=== PATIENT | male | born 1955 | race Caucasian/White ===

== ENCOUNTER 2017-01-31 08:07 | Emergency (ER) | payer OTHER ==
[2017-01-31 08:17] VITALS: TEMP 98
--- NOTE | 2017-01-31 08:41 | ED.PDOC ---
History of Present Illness - General Chief Complaint: GI Problem Stated Complaint: Possible bowel obstruction Time Seen by Provider: 01/31/17 08:34 Information Source: patient, RN notes reviewed, Vital Signs reviewed, family - Exam Limitations: no limitations - History of Present Illness Initial Comments: Patient comes in the w/o lower abd pain and constipation. Last normal bowel movement was 4-5 days ago. He was recently on Hydrocodone for dental pain. He has tried numerous oral and rectal OTC treatments with minimal improvement, just small amounts of brown liquid. He is passing small amounts of gas too. Feels bloated and like all the prune juice, mineral oil, etc is just still sitting in his stomach. He has not been eating much just because he does not want to put more in. He has been drinking a lot of water. + chills. No fever, no urinary symptoms. Abdominal Pain Onset Location: suprapubic Pain Radiation: no radiation Quality: moderate, cramping Timing/Duration: days - 5 Improving Factors: nothing Worsening Factors: eating Associated Symptoms: fever/chills Review of Systems - Review of Systems Constitutional: States: chills. Denies: diaphoresis, fever, malaise Respiratory: States: no symptoms reported. Denies: short of breath Cardiology: States: no symptoms reported. Denies: chest pain, palpitations, syncope Gastrointestinal/Abdominal: States: see HPI, abdominal pain, constipation. Denies: nausea, vomiting Genitourinary: States: no symptoms reported Musculoskeletal: States: no symptoms reported Skin: States: no symptoms reported Neurological: States: no symptoms reported All other Systems: No Change from Baseline Past Medical History (General) - Patient Medical History Hx Stroke: Yes - 2009 Hx Cardiac Disorders: Yes - pacemaker; CA Hx Congestive Heart Failure: Yes Hx Hypertension: Yes Hx Diabetes: No Hx Gastroesophageal Reflux: Yes - Vaccination History Hx Influenza Vaccination: Yes - 2016 Hx Pneumococcal Vaccination: Yes - Social History Hx Tobacco Use: Yes Family Medical History - Family History Father Living Status: Cause of : Cancer Physical Exam - Physical Exam General Appearance: Alert, Comfortable, No apparent distress, Well Developed, Well Groomed, Well Hydrated, Well Nourished Respiratory: chest non-tender, lungs clear, normal breath sounds, no respiratory distress, no accessory muscle use Cardiovascular/Chest: regular rate, rhythm, no gallop, no JVD, no murmur Gastrointestinal/Abdominal: soft, no organomegaly, no pulsatile mass, abnormal bowel sounds - Hypoactive, tenderness - mild LLQ & suprapubic w/o guarding or rebound Extremity: normal range of motion Neurologic: alert, normal mood/affect, oriented x 3 Skin Exam: normal color, warm/dry Comments: Vital Signs 01/31/17 08:16 Temperature 98.0 F Pulse Rate [ 98 H Left Radial] Respiratory 20 Rate Blood Pressure 116/69 [Left Arm] O2 Sat by Pulse 95 Oximetry Progress - Progress Progress: 01/31/17 09:13 Will try soap suds enema and see how patient responds 01/31/17 11:19 Patient had a good response to the enema. He is ready to go home. - EKG/XRAY/CT XRAY: abdomen - No acute process per Radiologist - No constipation but does appear to have a ball of stool in rectum Departure - Departure Clinical Impression: Constipation Qualifiers: Constipation type: other constipation type Qualified Code(s): K59.09 - Other constipation Time of Disposition: 11:19 Disposition: Discharge to Home or Self Care Condition: Good Departure Forms: ED Discharge - Pt. Copy, Patient Portal Self Enrollment Instructions: DI for Constipation Diet: resume usual diet Activity: increase activity as tolerated Home Medications: Ambulatory Orders Omeprazole 20 mg PO DAILY 01/31/17
--- NOTE | 2017-01-31 09:05 | RAD ---
PROCEDURE: Abdomen Flat Upright Clinical History: Lower abd pain/constipation Indication: Same as above Comparison: None Technique: 3.0 views of the abdomen and pelvis were done. Findings: There is no gross evidence of free air in the abdomen or the pelvis . The small and large bowel gas pattern does not show any evidence of obstruction, ileus or bowel wall thickening. There is no visualization of radiopaque calculi in the outline of the urinary tract. The visualized lung bases show presence of a ICD wires projected over the cardiac contour There is no constipation. Impression: Unremarkable abdomen and pelvis Location of Interpretation: [id number] Electronically signed by: Jose Brennan MD 01/31/2017 9:04 AM CDT Workstation: [employer]
[2017-01-31 11:37] VITALS: BP 135/86; O2SAT 100
== END 2017-01-31 11:22 | disposition home or self-care (01) ==
LOC: ER 08:07
DX: K59.00 Constipation, unspecified (principal); I25.2 Old myocardial infarction; I50.9 Heart failure, unspecified; I11.0 Hypertensive heart disease with heart failure; K21.9 Gastro-esophageal reflux disease without esophagitis; Z95.0 Presence of cardiac pacemaker; Z87.891 Personal history of nicotine dependence

== ENCOUNTER → 2018-09-16 | Outpatient (CLI) | payer OTHER ==
--- NOTE | 2018-09-16 10:54 | RAD ---
EXAM DESCRIPTION: Shoulder,Right 2 or More Views CLINICAL HISTORY: 62 years Male, PAIN IN RIGHT SHOULDER COMPARISON: None available. FINDINGS: The visualized bones are well-mineralized.No acute fracture or dislocation. The soft tissues appear grossly unremarkable. Mild degenerative changes are identified in the acromioclavicular joint. 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 Electronically signed by: Stacie Alarcon MD 09/16/2018 10:[address] [facility]
--- NOTE | 2018-09-16 14:28 | RAD ---
Left elbow 3 views INDICATION: Elbow pain IMPRESSION: Small calcification proximal to the medial epicondyle. Enthesophyte/ossification medial epicondyle. Mild osteophyte formation humeral trochlea and sublime tubercle. These are chronic degenerative type changes. No fracture or dislocation. Electronically signed by: Domenic Harris MD 09/16/2018 2:26 PM [facility]
== END ==
LOC: RAD 08:55
PROVIDERS: ATTEND Orthopaedic Surgery
DX: M19.011 Primary osteoarthritis, right shoulder (principal); M25.712 Osteophyte, left shoulder; M25.522 Pain in left elbow; M25.511 Pain in right shoulder

== ENCOUNTER 2019-01-14 07:00 | Emergency (ER) | payer MEDICARE, OTHER ==
--- NOTE | 2019-01-14 08:40 | CT ---
EXAM: CT Abdomen and Pelvis With Intravenous Contrast CLINICAL HISTORY: 63 years old and is Male; rlq pain TECHNIQUE: Axial computed tomography images of the abdomen and pelvis with intravenous contrast. Sagittal and coronal reformatted images were created and reviewed. This CT exam was performed using one or more of the following dose reduction techniques: automated exposure control, adjustment of the mA and/or kV according to patient size, and/or use of iterative reconstruction technique. COMPARISON: No relevant prior studies available. FINDINGS: Limitations: None. Lung bases: Unremarkable. No mass. No consolidation. ABDOMEN: Liver: Fatty liver. Gallbladder and bile ducts: Unremarkable. No calcified stones. No ductal dilation. Pancreas: Unremarkable. No mass. No ductal dilation. Spleen: Unremarkable. No splenomegaly. Adrenals: Unremarkable. No mass. Kidneys and ureters: There is right renal cortical scarring. No hydronephrosis or mass. No stone. Stomach and bowel: Colonic diverticulosis noted. No obstruction. No mucosal thickening. PELVIS: Appendix: The appendix is dilated to 16 mm, thickened and inflamed. It is located in the typical position. Bladder: Unremarkable. No mass. Reproductive: Unremarkable as visualized. ABDOMEN and PELVIS: Intraperitoneal space: Unremarkable. No free air. No significant fluid collection. Bones/joints: No acute fracture. No dislocation. Soft tissues: Unremarkable. Vasculature: There is atherosclerosis of the aorta and branches. No aneurysm or dissection. Lymph nodes: Unremarkable. No enlarged lymph nodes. Tubes, lines and devices: Artifact from the defibrillator leads present in the cardiac ventricles. IMPRESSION: Acute appendicitis without complication. Electronically signed by: Gina Mojica MD 01/14/2019 8:38 AM CDT
[2019-01-14] MEDS ORDERED: PIPERACILLIN/TAZOBACTAM 3.375 GM in SODIUM CHLORIDE 0.9% 100ML 100 ML IVPB ONE (08:54)
[2019-01-14] MEDS ORDERED: SODIUM CHLORIDE 0.9% 100ML 100 ML IVPB ONE (08:56)
[2019-01-14] MEDS ORDERED: PIPERACILLIN/TAZOBACTAM 3.375 GM VIAL IVPB ONE (08:56)
--- NOTE | 2019-01-14 09:22 | ED.PDOC ---
History of Present Illness - General Chief Complaint: Abdominal Pain Stated Complaint: RLQ abdomen pain Time Seen by Provider: 01/14/19 07:22 Source: patient Exam Limitations: no limitations - History of Present Illness Initial Comments: the patient is a 63-year-old male ing to the emergency room secondary to right lower quadrant pain. Pain started yesterday. He has had a loss of appetite. Questionable chills overnight but no definite fever. No vomiting. He did take some laxative yesterday so he's had a couple of episodes of diarrhea. No blood in the stool. He does have localized right lower quadrant pain at its worst and some generalized associated peritonitis. Timing/Duration: 24 hours Severity: moderate Improving Factors: nothing Worsening Factors: eating, movement Associated Symptoms: loss of appetite, malaise Allergies/Adverse Reactions: Allergies Haloperidol [From Haldol] Adverse Reaction (Verified 01/14/19 07:31) Home Medications: Ambulatory Orders Carvedilol Phosphate 40 mg PO DAILY 01/14/19 Rosuvastatin Calcium 5 mg PO DAILY 01/14/19 Telmisartan 40 mg PO DAILY 01/14/19 Review of Systems - Review of Systems Constitutional: States: malaise EENTM: States: no symptoms reported Respiratory: States: no symptoms reported Cardiology: States: no symptoms reported Gastrointestinal/Abdominal: States: abdominal pain, diarrhea Genitourinary: States: no symptoms reported Musculoskeletal: States: no symptoms reported Skin: States: no symptoms reported Neurological: States: no symptoms reported Endocrine: States: no symptoms reported All other Systems: No Change from Baseline Past Medical History (General) - Patient Medical History Hx Stroke: Yes Hx of COPD: No Hx Cardiac Disorders: Yes Hx Congestive Heart Failure: No Hx Pacemaker: Yes Hx Hypertension: Yes Hx Diabetes: No Hx Gastroesophageal Reflux: Yes Surgical History: other - Vaccination History Hx Tetanus, Diphtheria Vaccination: No Hx Influenza Vaccination: Yes Hx Pneumococcal Vaccination: Yes - Social History Hx Tobacco Use: Yes Hx Alcohol Use: Yes - Occasional Hx Substance Use: No Hx Substance Use Treatment: No Hx Depression: No - Female History Patient is a Female of Child Bearing Age (10 -59 yrs old): No Patient : No Family Medical History - Family History Father Living Status: Cause of : Cancer Physical Exam - Physical Exam General Appearance: Alert, No apparent distress Eye Exam: bilateral normal Ears, Nose, Throat: hearing grossly normal, normal ENT inspection, normal pharynx Neck: full range of motion, supple Respiratory: lungs clear, normal breath sounds, no respiratory distress, no accessory muscle use Cardiovascular/Chest: normal peripheral pulses, regular rate, rhythm, no edema Peripheral Pulses: radial,right: 2+, radial,left: 2+, dorsalis pedis,right: 2+, dorsalis pedis,left: 2+ Gastrointestinal/Abdominal: other - right lower quadrant pain with some mild to moderate associated peritonitis. No definite palpable mass. He does have some guarding. 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 He will be made nothing by mouth. He has not had any solid food since yesterday. He is receiving a dose of Zosyn. A blood culture has been performed. His only blood thinner as aspirin. He is being transferred for higher level of care secondary to our facility not having surgery over the weekend. Acceptance is appreciated. - Results/Orders Results/Orders: 01/14/19 07:50 BLOOD CULTURE Stat 01/14/19 08:11 Hold Metformin x 48Hrs [id number] 01/14/19 08:54 Piperacillin/Tazobactam [Zosyn] 3.375 gm Sodium Chloride 0.9% 100Ml [NS (NACL 0.9%) 100ml] 100 ml IVPB ONCE Laboratory Results - last 24 hr 01/14/19 01/14/19 01/14/19 07:45 07:50 07:50 WBC 15.6 H RBC 5.43 Hgb 16.3 Hct 49.0 MCV 90.3 MCH 30.1 MCHC 33.3 RDW 13.5 Plt Count 221 MPV 8.9 Absolute Neuts (auto) 11.30 H Absolute Lymphs (auto) 2.40 Absolute Monos (auto) 1.60 H Absolute Eos (auto) 0.10 Absolute Basos (auto) 0.10 Neutrophils % 72.8 Lymphocytes % 15.7 L Monocytes % 10.0 H Eosinophils % 0.8 L Basophils % 0.7 D-Dimer, Quantitative Sodium 138 Potassium 3.8 Chloride 99 L Carbon Dioxide 28 Anion Gap 14.8 BUN 9 Creatinine 0.84 BUN/Creatinine Ratio 10.7 Random Glucose 128 H Serum Osmolality 276.0 Lactic Acid 0.9 Calcium 10.0 Total Bilirubin 0.9 AST 19 ALT 30 Alkaline Phosphatase 68 Creatine Kinase 60 CK-MB (CK-2) 1.0 CK-MB (CK-2) % Not Reportable Troponin I < 0.02 Serum Total Protein 7.5 Albumin 4.2 Globulin 3.3 Albumin/Globulin Ratio 1.3 Amylase 28 Lipase 29 Urine Color Urine Appearance Urine pH Ur Specific [place] Urine Protein Urine Glucose (UA) Urine Ketones Urine Blood Urine Nitrite Urine Bilirubin Urine Urobilinogen Ur Leukocyte Esterase Urine RBC Urine WBC Ur Epithelial Cells Amorphous Sediment Urine Bacteria 01/14/19 01/14/19 07:50 08:35 WBC RBC Hgb Hct MCV MCH MCHC RDW Plt Count MPV Absolute Neuts (auto) Absolute Lymphs (auto) Absolute Monos (auto) Absolute Eos (auto) Absolute Basos (auto) Neutrophils % Lymphocytes % Monocytes % Eosinophils % Basophils % D-Dimer, Quantitative 0.47 Sodium Potassium Chloride Carbon Dioxide Anion Gap BUN Creatinine BUN/Creatinine Ratio Random Glucose Serum Osmolality Lactic Acid Calcium Total Bilirubin AST ALT Alkaline Phosphatase Creatine Kinase CK-MB (CK-2) CK-MB (CK-2) % Troponin I Serum Total Protein Albumin Globulin Albumin/Globulin Ratio Amylase Lipase Urine Color Yellow Urine Appearance Clear Urine pH 8.5 H Ur Specific [place] 1.010 Urine Protein Trace Urine Glucose (UA) Negative Urine Ketones Negative Urine Blood Trace-intact H Urine Nitrite Negative Urine Bilirubin Negative Urine Urobilinogen 0.2 Ur Leukocyte Esterase Negative Urine RBC 1-3 Urine WBC 0-1 Ur Epithelial Cells 0 Amorphous Sediment 1+ Urine Bacteria Rare CT scan abdomen and pelvis shows appendicitis without evidence of perforation or abscess formation. Departure - Departure Clinical Impression: Appendicitis Qualifiers: Appendicitis type: acute appendicitis Acute appendicitis type: with localized peritonitis Appendicitis gangrene presence: without gangrene Appendicitis perforation presence: without perforation Appendicitis abscess presence: without abscess Qualified Code(s): K35.30 - Acute appendicitis with localized peritonitis, without perforation or gangrene Disposition: Transfer to Hospital Departure Forms: ED Discharge - Pt. Copy, Patient Portal Self Enrollment Home Medications: Ambulatory Orders Carvedilol Phosphate 40 mg PO DAILY 01/14/19 Rosuvastatin Calcium 5 mg PO DAILY 01/14/19 Telmisartan 40 mg PO DAILY 01/14/19 Transfer to Outside Facility - Transfer Information Accepting Provider:: dr partida/linda Accepting Facility: [facility] Reason for Transfer: required specialist not available
[2019-01-14 11:25] VITALS: BP 148/63; TEMP 97; O2SAT 96
== END 2019-01-14 10:50 | disposition short-term general hospital (02) ==
LOC: ER 07:00
DX: K35.30 Acute appendicitis with localized peritonitis, without perforation or gangrene (principal); I51.9 Heart disease, unspecified; I10 Essential (primary) hypertension; K21.9 Gastro-esophageal reflux disease without esophagitis; Z86.73 Personal history of transient ischemic attack (TIA), and cerebral infarction without residual deficits; Z95.0 Presence of cardiac pacemaker; Z87.891 Personal history of nicotine dependence; Z88.8 Allergy status to other drugs, medicaments and biological substances
CPT/HCPCS: 36415; 74177; 80053; 81001; 82150; 82550; 82553; 83605; 83690; 84484; 85025; 85379; 87040; J2543; J7050

== ENCOUNTER 2019-03-27 07:00 | Day surgery (SDC) | payer MEDICARE, OTHER ==
[~2019-03-27 07:00] MED LIST: DEXAMETHASONE INJ 10 MG/ML VIAL IV ONE; HYDROmorphone HCL INJ 2 MG/ML VIAL IV ONE; KETOROLAC TROMETHAMINE INJ 30 MG/ML VIAL IV ONE; LIDOCAINE 1% 10 ML VIAL INJ ONE; MIDAZOLAM INJ 2 MG/2 ML VIAL IV ONE; PROPOFOL 200 MG/20 ML VIAL IV ONE; SODIUM CHLORIDE 0.9% 50 ML VIAL INJ ONE; raNITIdine HCL INJ 25 MG/ML VIAL IV ONE
[2019-03-27] MEDS ORDERED: LACTATED RINGERS 1,000 ML ONE (07:20)
[2019-03-27] MEDS ORDERED: HYDROmorphone HCL INJ 2 MG/ML VIAL IV ONE (11:06)
[2019-03-27] MEDS ORDERED: MIDAZOLAM INJ 2 MG/2 ML VIAL IV ONE (11:06)
[2019-03-27] MEDS ORDERED: BUPIVACAINE 0.5% W/EPI 30 ML VIAL INJ ONE ×2 (11:07→11:34)
[2019-03-27] MEDS ORDERED: HYDROcodone 5MG/APAP 325MG 1 EA TAB ONE (12:44)
[2019-03-27] MEDS ORDERED: HYDROCOD/APAP 5/325 (ER DISP) #3 TAB PO ONE (12:47)
--- NOTE | 2019-03-27 13:08 | OP ---
DATE OF PROCEDURE: 03/27/19 PREOPERATIVE DIAGNOSIS: 1. Ventral incisional hernia. POSTOPERATIVE DIAGNOSIS: 1. Incarcerated ventral incisional hernia. PROCEDURE: 1. Repair of incarcerated incisional hernia with mesh. SURGEON: Ar Duvall MD. ANESTHESIA: General and local. FINDINGS: There was approximately 4 cm to 5 cm defect with some incarcerated omentum. The edges of the fascia were very healthy and firm. A 2.5 inch Ventralex was used. COMPLICATIONS: None. ESTIMATED BLOOD LOSS: Minimal. CONDITION: Stable. PLAN: Discharge. INDICATION: As stated. PROCEDURE: General anesthesia was induced. He was prepped and draped in sterile fashion. The previous scar was excised as it wide and unsightly and slightly keloid. Once that was removed, the abdominal cavity was entered without difficulty. There was incarcerated omentum around the edges of the hernia. These were freed up with cautery. We grasped the apex of the hernia, elevated it and made sure the intraabdominal peritoneum was free of adhesions and it was. We then assessed the hernia. It was just around 4 cm or so and reasonable for a 2.5 inch Ventralex, so the 0-PDS popoffs were used to close the apices and then placed the mesh. It was lying nice and flat on the abdominal wall with gentle pulling on the tail. We then placed the final sutures incorporating the tail with the fascia closure. We then trimmed the tail, burying it as we closed the final sutures for good closure. The wound was then closed in two layers and Steri-Strips were applied. He tolerated the procedure. He was awakened and taken to Recovery to be discharged. #[id number] cc: Ar Pedroza MD [facility]
[2019-03-27 13:55] VITALS: BP 159/79; TEMP 97.2; O2SAT 95
== END 2019-03-27 14:05 | disposition home or self-care (01) ==
LOC: AMB 07:00
PROVIDERS: ATTEND Surgery
DX: K43.0 Incisional hernia with obstruction, without gangrene (principal); I11.0 Hypertensive heart disease with heart failure; I50.22 Chronic systolic (congestive) heart failure; E78.00 Pure hypercholesterolemia, unspecified; F17.200 Nicotine dependence, unspecified, uncomplicated; Z90.49 Acquired absence of other specified parts of digestive tract; Z96.652 Presence of left artificial knee joint; Z88.8 Allergy status to other drugs, medicaments and biological substances; Z95.0 Presence of cardiac pacemaker; Z79.82 Long term (current) use of aspirin; Z79.899 Other long term (current) drug therapy
CPT/HCPCS: 00832; 36415; 49561; 49568; 80053; 85025; 93005; A4216; J1100; J1170; J1885; J2250; J2780; J3490; J7120

== ENCOUNTER 2019-06-09 18:06 | Emergency (ER) | payer MEDICARE, OTHER ==
[2019-06-09] MEDS ORDERED: TETANUS,DIPHTHERIA,PERTUSSIS 1 EA SYG IM ONE (18:27)
[2019-06-09] MEDS ORDERED: LIDOCAINE 1% 10 ML VIAL INJ ONE (18:40)
[2019-06-09] MEDS ORDERED: CHLORHEXIDINE GLUCONATE 4 % 15 ML UD TOP ONE (18:40)
[2019-06-09] MEDS ORDERED: NEOMYCIN-BACITRACIN-POLYMYXIN 0.9 GM UD TOP ONE (18:40)
--- NOTE | 2019-06-09 18:50 | ED.PDOC ---
History of Present Illness - General Chief Complaint: Laceration Stated Complaint: laceration to left hand Time Seen by Provider: 06/09/19 18:37 - History of Present Illness Initial Comments: patient presents today following a laceration from an accident with a chainsaw. He lacerated the fat pad of his left hand palmar aspect. He is not up-to-date on his tetanus shot. He admits that he is on a blood thinner currently. he rep orts that he cleaned it heavily with hydrogen peroxide prior to arrival. Allergies/Adverse Reactions: Allergies Haloperidol [From Haldol] Adverse Reaction (Verified 01/14/19 07:31) Home Medications: Ambulatory Orders Rosuvastatin Calcium 5 mg PO DAILY 01/14/19 Acetaminophen Arthritis [Tylenol Arthritis] 650 mg PO PRN PRN 03/22/19 Sacubitril-Valsartan [Entresto 24-26 mg] 1 tab PO BEDTIME 03/22/19 Amoxicillin & Pot Clavulanate [Augmentin Tab] 875 mg PO BID #14 tab 06/09/19 Carvedilol [Coreg] 3.125 mg PO BID 06/09/19 Clopidogrel Bisulfate [Plavix] 75 mg PO QD 06/09/19 Review of Systems - Review of Systems Constitutional: States: no symptoms reported Respiratory: States: no symptoms reported Cardiology: States: no symptoms reported Gastrointestinal/Abdominal: States: no symptoms reported Musculoskeletal: States: no symptoms reported Skin: States: see HPI, other - laceration to the left hand thenar eminence All other Systems: Reviewed and Negative Past Medical History (General) - Patient Medical History Hx Stroke: Yes Hx of COPD: No Hx Cardiac Disorders: Yes - Pacer/Defib,IN Hx Congestive Heart Failure: Yes Hx Pacemaker: Yes Hx Hypertension: Yes Hx Diabetes: No Hx Gastroesophageal Reflux: Yes Hx MRSA: No Surgical History: appendectomy, colectomy, pacemaker - Vaccination History Hx Tetanus, Diphtheria Vaccination: No Hx Influenza Vaccination: Yes - 06/08/19 Hx Pneumococcal Vaccination: Yes - 06/08/19 - Social History Hx Tobacco Use: Yes Hx Alcohol Use: Yes - Occasional Hx Substance Use: No Hx Substance Use Treatment: No Hx Depression: No - Female History Patient : No Family Medical History - Family History Father Living Status: Cause of : Cancer Physical Exam - Physical Exam General Appearance: Alert, Comfortable, No apparent distress Eyes, Ears, Nose, Throat Exam: PERRL/EOMI Cardiovascular/Chest: tachycardia Respiratory: no respiratory distress, no accessory muscle use Extremity: normal range of motion Neurologic: director of purchasing II-XII nml as tested, no motor/sensory deficits, alert, normal mood/affect, oriented x 3 Skin Exam: other - noted laceration 5 cm to the left thenar eminence linear, jagged due to mechanism of injury Skin Problem Location: upper extremities Progress - Progress Progress: 06/09/19 19:48 patient tolerated the procedure well, no pain evident currently Procedures - Laceration/Wound Repair Left Volar Hand Wound Length (cm): 5 Wound's Depth, Shape: linear, irregular Wound Explored: no foreign body removed Betadine Prep?: Yes Anesthesia: 1% Lidocaine Volume Anesthetic (cc's): 10 Wound Debrided: minimal Wound Repaired With: sutures Suture Size/Type: 4:0, prolene Number of Sutures: 12 Layer Closure?: No Sterile Dressing Applied?: Yes Splint Applied?: No Sling Applied?: No Departure - Departure Clinical Impression: Laceration Time of Disposition: 19:06 Disposition: Discharge to Home or Self Care Condition: Good Departure Forms: ED Discharge - Pt. Copy, Patient Portal Self Enrollment Instructions: DI for Laceration Repair Referrals: Ar Pedroza MD [Primary Care Provider] - 1-2 Weeks Prescriptions: Amoxicillin & Pot Clavulanate [Augmentin Tab] 875 mg PO BID #14 tab Home Medications: Ambulatory Orders Rosuvastatin Calcium 5 mg PO DAILY 01/14/19 Acetaminophen Arthritis [Tylenol Arthritis] 650 mg PO PRN PRN 03/22/19 Sacubitril-Valsartan [Entresto 24-26 mg] 1 tab PO BEDTIME 03/22/19 Amoxicillin & Pot Clavulanate [Augmentin Tab] 875 mg PO BID #14 tab 06/09/19 Carvedilol [Coreg] 3.125 mg PO BID 06/09/19 Clopidogrel Bisulfate [Plavix] 75 mg PO QD 06/09/19 Additional Instructions: Suture removal in 10 days. Return if any signs and symptoms of infection. Keep covered for 3 days.
[2019-06-09] MEDS ORDERED: AMOXICILLIN & POT CLAVULANATE 875 MG TAB PO ONE (19:02)
[2019-06-09 19:17] VITALS: BP 140/78; TEMP 98; O2SAT 96
== END 2019-06-09 19:16 | disposition home or self-care (01) ==
LOC: ER 18:06
DX: S61.412A Laceration without foreign body of left hand, initial encounter (principal); I25.2 Old myocardial infarction; I11.0 Hypertensive heart disease with heart failure; I50.9 Heart failure, unspecified; K21.9 Gastro-esophageal reflux disease without esophagitis; Z79.01 Long term (current) use of anticoagulants; Z87.891 Personal history of nicotine dependence; Z86.73 Personal history of transient ischemic attack (TIA), and cerebral infarction without residual deficits; Z95.0 Presence of cardiac pacemaker; W29.3XXA Contact with powered garden and outdoor hand tools and machinery, initial encounter; Z79.899 Other long term (current) drug therapy; Y92.9 Unspecified place or not applicable

== ENCOUNTER → 2020-04-18 | Outpatient (CLI) | payer MEDICARE, OTHER | LOC: GMAJ 10:33 | PROVIDERS: ATTEND Family Medicine | DX: Z12.5 Encounter for screening for malignant neoplasm of prostate (principal) ==

== ENCOUNTER → 2020-08-19 | Outpatient (CLI) | payer OTHER | LOC: YCFC.O 09:59 | PROVIDERS: ATTEND Nurse Practitioner Family | DX: Z20.828 Contact with and (suspected) exposure to other viral communicable diseases (principal) ==